=== PATIENT | female | born 1960 | race Caucasian/White ===

== ENCOUNTER 2017-12-31 05:23 | Observation (INO) | payer BC ==
--- NOTE | 2017-12-31 05:47 | ED ---
Nausea/Vomiting/Diarrhea HPI - General Source: patient Mode of arrival: ambulatory Limitations: no limitations - History of Present Illness MD complaint: nausea, vomiting Onset/Timin -: hour(s) Description of Vomiting: food contents Associated Abdominal Pain: No Radiation: none Consistency: constant Improves with: none Worsens with: none Associated Symptoms: other (Palpitations) <Dank Medrano - Last Filed: 12/31/17 05:56> <Ari Edwards - Last Filed: 12/31/17 09:06> - General Chief complaint: Nausea/Vomiting/Diarrhea Stated complaint: NVD, racing heart Time Seen by Provider: 12/31/17 05:35 - History of Present Illness Initial comments: This patient is 57-year-old woman who presents to be evaluated for nausea and vomiting. She states that she had been sleeping in woke up around 2:00 because she was feeling nauseated and then she had a number of episodes of vomiting. When this continued into the morning she presented here to be evaluated. She states that she also felt like her heart was racing. She states she had a similar episode about 10 years ago. (Dank Medrano) - Related Data Home Medications Medication Instructions Recorded Confirmed Calcium Carbonate/Vitamin D3 1 tab PO Q48H 12/31/17 12/31/17 [Calcium 600-Vit D3 200 Tablet] Metoprolol Tartrate [Lopressor] 12.5 mg PO HS 12/31/17 12/31/17 Metoprolol Tartrate [Lopressor] 25 mg PO QAM 12/31/17 12/31/17 Simvastatin [Zocor] 10 mg PO HS 12/31/17 12/31/17 Allergies Allergy/AdvReac Type Severity Reaction Status Date / Time aspirin AdvReac Nausea & Verified 12/31/17 07:45 Vomiting metronidazole [From Flagyl] AdvReac Nausea & Verified 12/31/17 07:45 Vomiting Review of Systems ROS Other: All systems not noted in ROS Statement are negative. Constitutional: Denies: fever, chills, weakness Respiratory: Denies: cough, dyspnea, wheezes Cardiovascular: Reports: palpitations. Denies: chest pain, orthopnea, edema Gastrointestinal: Reports: nausea, vomiting. Denies: abdominal pain, constipation, melena, hematochezia Genitourinary: Denies: dysuria, hematuria Musculoskeletal: Denies: back pain Skin: Denies: rash Neurological: Denies: headache, weakness, numbness <Dank Medrano - Last Filed: 12/31/17 05:56> ROS Other: All systems not noted in ROS Statement are negative. <Ari Edwards - Last Filed: 12/31/17 09:06> ROS Statement: Those systems with pertinent positive or pertinent negative responses have been documented in the HPI. Past Medical History Past Medical History: Hyperlipidemia, Thyroid Disorder Additional Past Medical History / Comment(s): pulmonary ventricular contractions , colitis, polycystic ovarian disorder History of Any Multi-Drug Resistant Organisms: None Reported Past Surgical History: Tubal Ligation Additional Past Surgical History / Comment(s): ovarian cyst removal Past Psychological History: No Psychological Hx Reported Smoking Status: Never smoker Past Alcohol Use History: None Reported Past Drug Use History: None Reported <Dank Medrano - Last Filed: 12/31/17 05:56> General Exam Limitations: no limitations General appearance: alert, in no apparent distress, anxious Head exam: Present: atraumatic, normocephalic Eye exam: Present: normal appearance. Absent: scleral icterus, conjunctival injection ENT exam: Present: mucous membranes dry Neck exam: Present: normal inspection Respiratory exam: Present: normal lung sounds bilaterally. Absent: respiratory distress, wheezes, rales, rhonchi, stridor Cardiovascular Exam: Present: normal rhythm, tachycardia (Rates approximate 104 bpm), normal heart sounds. Absent: systolic murmur, diastolic murmur, rubs, gallop GI/Abdominal exam: Present: soft, diminished bowel sounds. Absent: distended, tenderness, guarding, rebound, rigid, mass, pulsatile mass, hernia Extremities exam: Present: normal inspection, normal capillary refill. Absent: pedal edema, calf tenderness Back exam: Present: normal inspection. Absent: CVA tenderness (R), CVA tenderness (L) Neurological exam: Present: alert Skin exam: Present: warm, dry, intact, normal color. Absent: rash <Dank Medrano - Last Filed: 12/31/17 05:56> Vital Signs 12/31/17 12/31/17 12/31/17 05:26 06:37 08:21 Temperature 97.5 F L Pulse Rate 105 H 99 75 Respiratory 20 17 Rate Blood Pressure 142/86 152/84 145/75 O2 Sat by Pulse 99 95 95 Oximetry Medical Decision Making - EKG Data -: EKG Interpreted by Ar EKG shows normal: sinus rhythm, axis (Normal), intervals (Normal), QRS complexes (Normal), ST-T waves (Normal) Rate: tachycardia (Rate 104 bpm) <Dank Medrano - Last Filed: 12/31/17 05:56> - Lab Data Result diagrams: 12/31/17 05:48 12/31/17 05:48 - Radiology Data Radiology results: report reviewed (Gallbladder ultrasound shows no acute process) <Ari Edwards - Last Filed: 12/31/17 09:06> - Medical Decision Making Patient was reevaluated by myself, Dr. Edwards. Abdomen soft and nontender. Patient does feel much better at this time. Blood sugar remains 333 despite 10 units of IV insulin and fluid bolus. Case was discussed in detail with Dr. Reynolds, who will admit for [facility]. Patient updated. (Ari Edwards) - Lab Data Lab Results 12/31/17 12/31/17 12/31/17 Range/Units 05:48 05:48 05:48 WBC 12.3 H (3.8-10.6) k/uL RBC 5.96 H (3.80-5.40) m/uL Hgb 17.0 H (11.4-16.0) gm/dL Hct 51.5 H (34.0-46.0) % MCV 86.5 (80.0-100.0) fL MCH 28.5 (25.0-35.0) pg MCHC 33.0 (31.0-37.0) g/dL RDW 13.8 (11.5-15.5) % Plt Count 351 (150-450) k/uL Neutrophils % 86 % Lymphocytes % 6 % Monocytes % 5 % Eosinophils % 1 % Basophils % 0 % Neutrophils # 10.7 H (1.3-7.7) k/uL Lymphocytes # 0.8 L (1.0-4.8) k/uL Monocytes # 0.6 (0-1.0) k/uL Eosinophils # 0.1 (0-0.7) k/uL Basophils # 0.1 (0-0.2) k/uL Sodium 140 (137-145) mmol/L Potassium 4.8 (3.5-5.1) mmol/L Chloride 100 (98-107) mmol/L Carbon Dioxide 21 L (22-30) mmol/L Anion Gap 19 mmol/L BUN 15 (7-17) mg/dL Creatinine 0.75 (0.52-1.04) mg/dL Est GFR (CKD-EPI)AfAm >90 (>60 ml/min/1.73 sqM) Est GFR (CKD-EPI)NonAf 90 (>60 ml/min/1.73 sqM) Glucose 416 H (74-99) mg/dL POC Glucose (mg/dL) (75-99) mg/dL POC Glu Mental Hygienist ID Calcium 10.0 (8.4-10.2) mg/dL Total Bilirubin 1.6 H (0.2-1.3) mg/dL AST 32 (14-36) U/L ALT 47 (9-52) U/L Alkaline Phosphatase 184 H (38-126) U/L Total Protein 7.5 (6.3-8.2) g/dL Albumin 4.6 (3.5-5.0) g/dL Amylase 122 H (30-110) U/L Lipase 214 (23-300) U/L Urine Color Urine Appearance (Clear) Urine pH (5.0-8.0) Ur Specific [place] (1.001-1.035) Urine Protein (Negative) Urine Glucose (UA) (Negative) Urine Ketones (Negative) Urine Blood (Negative) Urine Nitrite (Negative) Urine Bilirubin (Negative) Urine Urobilinogen (<2.0) mg/dL Ur Leukocyte Esterase (Negative) Urine RBC (0-5) /hpf Urine WBC (0-5) /hpf Ur Squamous Epith Cells (0-4) /hpf Urine Mucus (None) /hpf Acetone, Qual Negative (Negative) 12/31/17 12/31/17 Range/Units 06:02 08:06 WBC (3.8-10.6) k/uL RBC (3.80-5.40) m/uL Hgb (11.4-16.0) gm/dL Hct (34.0-46.0) % MCV (80.0-100.0) fL MCH (25.0-35.0) pg MCHC (31.0-37.0) g/dL RDW (11.5-15.5) % Plt Count (150-450) k/uL Neutrophils % % Lymphocytes % % Monocytes % % Eosinophils % % Basophils % % Neutrophils # (1.3-7.7) k/uL Lymphocytes # (1.0-4.8) k/uL Monocytes # (0-1.0) k/uL Eosinophils # (0-0.7) k/uL Basophils # (0-0.2) k/uL Sodium (137-145) mmol/L Potassium (3.5-5.1) mmol/L Chloride (98-107) mmol/L Carbon Dioxide (22-30) mmol/L Anion Gap mmol/L BUN (7-17) mg/dL Creatinine (0.52-1.04) mg/dL Est GFR (CKD-EPI)AfAm (>60 ml/min/1.73 sqM) Est GFR (CKD-EPI)NonAf (>60 ml/min/1.73 sqM) Glucose (74-99) mg/dL POC Glucose (mg/dL) 333 H (75-99) mg/dL POC Glu Mental Hygienist ID [place], Dora Calcium (8.4-10.2) mg/dL Total Bilirubin (0.2-1.3) mg/dL AST (14-36) U/L ALT (9-52) U/L Alkaline Phosphatase (38-126) U/L Total Protein (6.3-8.2) g/dL Albumin (3.5-5.0) g/dL Amylase (30-110) U/L Lipase (23-300) U/L Urine Color Light Yellow Urine Appearance Clear (Clear) Urine pH 5.5 (5.0-8.0) Ur Specific [place] 1.031 (1.001-1.035) Urine Protein 1+ H (Negative) Urine Glucose (UA) 4+ H (Negative) Urine Ketones 3+ H (Negative) Urine Blood Negative (Negative) Urine Nitrite Negative (Negative) Urine Bilirubin Negative (Negative) Urine Urobilinogen <2.0 (<2.0) mg/dL Ur Leukocyte Esterase Negative (Negative) Urine RBC <1 (0-5) /hpf Urine WBC 1 (0-5) /hpf Ur Squamous Epith Cells 1 (0-4) /hpf Urine Mucus Rare H (None) /hpf Acetone, Qual (Negative) Disposition <Trachy,Dank - Last Filed: 12/31/17 05:56> Is patient prescribed a controlled substance at d/c from ED?: No Decision Time: 09:06 <Ari Edwards - Last Filed: 12/31/17 09:06> Clinical Impression: Uncontrolled diabetes mellitus, Vomiting Disposition: ADMITTED IP TO THIS HOSP Referrals: Stormy Garcia DO [Primary Care Provider] - 1-2 days
[2017-12-31] MEDS ORDERED: ONDANSETRON 4 MG/2 ML VIAL IVP STA (05:51)
[2017-12-31] MEDS ORDERED: SODIUM CHLORIDE 0.9% 1,000 ML IV ONE (05:51)
[2017-12-31 06:06] LABS: Basophils # (A) 0.1 k/uL (0-0.2); Basophils % (A) 0 %; Eosinophils # (A) 0.1 k/uL (0-0.7); Eosinophils % (A) 1 %; HCT 51.5 % (34.0-46.0); Lymphocytes # (A) 0.8 k/uL (1.0-4.8); Lymphocytes % (A) 6 %; MCH 28.5 pg (25.0-35.0); MCV 86.5 fL (80.0-100.0); Mean Platelet Volume 6.6; Monocytes # (A) 0.6 k/uL (0-1.0); Monocytes % (A) 5 %; Neutrophils # (A) 10.7 k/uL (1.3-7.7); Neutrophils % (A) 86 %; Platelet Count 351 k/uL (150-450); RBC 5.96 m/uL (3.80-5.40); RDW 13.8 % (11.5-15.5); WBC 12.3 k/uL (3.8-10.6)
[2017-12-31 06:19] LABS: ALT 47 U/L (9-52); AST 32 U/L (14-36); Albumin 4.6 g/dL (3.5-5.0); Alkaline Phosphatase 184 U/L (38-126); Amylase 122 U/L (30-110); Anion Gap 19 mmol/L; Blood Urea Nitrogen 15 mg/dL (7-17); Carbon Dioxide 21 mmol/L (22-30); Chloride 100 mmol/L (98-107); Glucose 416 mg/dL (74-99); Lipase 214 U/L (23-300); Potassium 4.8 mmol/L (3.5-5.1); Sodium 140 mmol/L (137-145); Total Bilirubin 1.6 mg/dL (0.2-1.3); Total Protein 7.5 g/dL (6.3-8.2)
[2017-12-31 06:19] LABS: Appearance,Urine Clear (Clear); Bilirubin,Urine Negative (Negative); Blood,Urine Negative (Negative); Color,Urine Light Yellow; Glucose,Urine (UA) 4+ (Negative); Leukocyte Esterase,Urine Negative (Negative); Mucus,Urine Rare /hpf; Nitrite,Urine Negative (Negative); PH, Urine 5.5 (5.0-8.0); Protein,Urine 1+ (Negative); RBC,Urine <1 /hpf (0-5); Specific Gravity,Urine 1.031 (1.001-1.035); Squamous Epithelial Cell,Urine 1 /hpf (0-4); Urobilinogen,Urine <2.0 mg/dL (<2.0); WBC,Urine 1 /hpf (0-5)
[2017-12-31 06:25] LABS: Ketones,Urine 3+ (Negative)
[2017-12-31] MEDS ORDERED: INSULIN REGULAR 100 UNIT/ML VIAL SQ STA (06:26)
[2017-12-31] MEDS ORDERED: METOCLOPRAMIDE 5 MG/ML 2 ML VIAL IVP STA (07:16)
[2017-12-31 08:08] LABS: Glucose,Whole Blood 333 mg/dL (75-99)
--- NOTE | 2017-12-31 08:36 | US ---
EXAMINATION TYPE: US abdomen limited DATE OF EXAM: 12/31/2017 COMPARISON: CT 2012, US 2011 CLINICAL HISTORY: Pain, attention RUQ. Abdomen pain and N/V/D x 1 day EXAM MEASUREMENTS: Liver Length: 18.6 cm Gallbladder Wall: 0.2 cm CBD: 0.7 cm Right Kidney: 11.5 x 5.2 x 5.5 cm Difficult study due to patient body habitus Pancreas: obscured by overlying midline bowel gas Liver: Prominent at 18.6cm, increased attenuation, heterogeneous with small hypoechoic areas adjacen t to gallbladder with largest measuring 1.5cm, possible focal sparring Gallbladder: wnl Evidence for sonographic Bean's sign: no CBD: Minimally dilated at 0.7cm Right Kidney: wnl Visualized liver is heterogeneously hyperechoic consistent with diffuse fatty infiltration. IMPRESSION: No shadowing mobile gallstones or ultrasound evidence for acute cholecystitis. Diffuse fa tty infiltration of liver is redemonstrated.
[2017-12-31] MEDS ORDERED: NALOXONE 0.4 MG/ML 1 ML VIAL IV PRN (09:07)
[2017-12-31] MEDS ORDERED: ONDANSETRON 4 MG/2 ML VIAL IVP PRN (09:07)
[2017-12-31] MEDS: SODIUM CHLORIDE 0.9% 1,000 ML IV SCH (10:30)
[2017-12-31] MEDS: PANTOPRAZOLE 40 MG/10 ML VIAL IV SCH (10:30)
[2017-12-31 11:21] VITALS: BMI 30.4
[2017-12-31 12:18] LABS: Glucose,Whole Blood 247 mg/dL (75-99)
[2017-12-31] MEDS: INSULIN ASPART 100 UNIT/ML 1 ML 10 ML VIAL SQ SCH ×3 (12:24→21:10)
[2017-12-31 14:42] VITALS: RESP 16
[2017-12-31] MEDS ORDERED: CALCIUM CARB-VIT D 500MG-200UN 1 EACH TAB PO SCH (16:30)
[2017-12-31 17:14] LABS: Glucose,Whole Blood 240 mg/dL (75-99)
--- NOTE | 2017-12-31 17:39 | P.HPIM ---
History of Present Illness H&P Date: 12/31/17 Ryanne Rowland is a 57-year-old female patient of Dr. Stormy Garcia who presented to [facility] emergency room with a chief complaint of vomiting diarrhea and abdominal pain. Patient stated that she was in her normal state of health on Thursday evening she went to bed, she woke up at 2 AM complaining of nausea vomiting diarrhea and abdominal pain, she was brought in to [facility] emergency room where she was evaluated her glucose level was elevated at 416 total bilirubin was up to 1.6 and alkaline phosphatase was elevated at 184 abdomen ultrasound was done and it did not show any acute abnormality, patient was admitted to medical floor for further evaluation, lipase was normal at 214 and it is slightly elevated at 122. Patient stated that she was diagnosed with diabetes many years ago she took metformin for 4 years, her sugar was then normal, she discontinued taking metformin several years ago, she stated that her last blood test was about 2 years ago. Patient also stated that she had a previous diagnosis of colitis where she use to have flareups requiring antibiotic treatment, she states that she has not had any recent flareup her last treatment was 3 years ago. Past Medical History Past Medical History: Eye Disorder, Hyperlipidemia, Thyroid Disorder Additional Past Medical History / Comment(s): "Pre diabetes but was taken off glucophage 8 years ago", premature ventricular contractions, colitis, polycystic ovarian disorder, hypothyroid, psoriatic arthritis multiple joints, nonalcoholic fatty liver, beginnings of macular degeneration bilaterally. History of Any Multi-Drug Resistant Organisms: None Reported Past Surgical History: Tubal Ligation Additional Past Surgical History / Comment(s): 3 ovarian cysts removal-bilateral , colonoscopy, teeth pulled. Additional Past Anesthesia/Blood Transfusion Reaction / Comment(s): Slow to wake after anesthesia. Smoking Status: Never smoker - Past Family History Mother Family Medical History: COPD, CVA/TIA, Myocardial Infarction (PR) Additional Family Medical History / Comment(s): Mother had a CVA and during that work-up was told she had a PR at some time. Mother of emphysema at the age of 76yrs. She was a smoker. Father Family Medical History: Hyperlipidemia Additional Family Medical History / Comment(s): Father is living. Medications and Allergies Home Medications Medication Instructions Recorded Confirmed Type Calcium Carbonate/Vitamin D3 1 tab PO Q48H 12/31/17 12/31/17 History [Calcium 600-Vit D3 200 Tablet] Metoprolol Tartrate [Lopressor] 12.5 mg PO HS 12/31/17 12/31/17 History Metoprolol Tartrate [Lopressor] 25 mg PO QAM 12/31/17 12/31/17 History Simvastatin [Zocor] 10 mg PO HS 12/31/17 12/31/17 History Allergies Allergy/AdvReac Type Severity Reaction Status Date / Time aspirin AdvReac Nausea & Verified 12/31/17 07:45 Vomiting metronidazole [From Flagyl] AdvReac Nausea & Verified 12/31/17 07:45 Vomiting Physical Exam Vitals: Vital Signs Temp Pulse Pulse Resp BP BP Pulse Ox 12/31/17 14:42 98.5 F 111 H 16 123/64 97 12/31/17 10:11 97.5 F L 97 18 137/80 92 L 12/31/17 09:51 97 18 137/80 92 L 12/31/17 08:21 75 145/75 95 12/31/17 08:00 97.9 F 93 16 127/66 95 12/31/17 06:37 99 17 152/84 95 12/31/17 05:26 97.5 F L 105 H 20 142/86 99 Intake and Output 12/31/17 12/31/17 12/31/17 06:59 14:59 22:59 Intake Total 1600 Balance 1600 Intake: Amount of Fluid Infused ( 1600 ml) Other: # Voids 2 Weight 90.718 kg 90.718 kg In general patient is alert and oriented 3 in no apparent distress HEENT head normocephalic and atraumatic Neck is supple no JVD no goiter no lymphadenopathy Chest exam reveals a few scattered rhonchi no wheezing Cardiac exam reveals regular heart sounds no gallops no murmurs Abdomen is soft with mild diffuse tenderness no organomegaly Extremity exam reveals no edema no cyanosis or clubbing Results CBC & Chem 7: 12/31/17 05:48 12/31/17 05:48 Labs: Abnormal Lab Results - Last 24 Hours (Table) 12/31/17 12/31/17 12/31/17 Range/Units 05:48 05:48 06:02 WBC 12.3 H (3.8-10.6) k/uL RBC 5.96 H (3.80-5.40) m/uL Hgb 17.0 H (11.4-16.0) gm/dL Hct 51.5 H (34.0-46.0) % Neutrophils # 10.7 H (1.3-7.7) k/uL Lymphocytes # 0.8 L (1.0-4.8) k/uL Carbon Dioxide 21 L (22-30) mmol/L Glucose 416 H (74-99) mg/dL POC Glucose (mg/dL) (75-99) mg/dL Total Bilirubin 1.6 H (0.2-1.3) mg/dL Alkaline Phosphatase 184 H (38-126) U/L Amylase 122 H (30-110) U/L Urine Protein 1+ H (Negative) Urine Glucose (UA) 4+ H (Negative) Urine Ketones 3+ H (Negative) Urine Mucus Rare H (None) /hpf 12/31/17 12/31/17 12/31/17 Range/Units 08:06 12:11 17:00 WBC (3.8-10.6) k/uL RBC (3.80-5.40) m/uL Hgb (11.4-16.0) gm/dL Hct (34.0-46.0) % Neutrophils # (1.3-7.7) k/uL Lymphocytes # (1.0-4.8) k/uL Carbon Dioxide (22-30) mmol/L Glucose (74-99) mg/dL POC Glucose (mg/dL) 333 H 247 H 240 H (75-99) mg/dL Total Bilirubin (0.2-1.3) mg/dL Alkaline Phosphatase (38-126) U/L Amylase (30-110) U/L Urine Protein (Negative) Urine Glucose (UA) (Negative) Urine Ketones (Negative) Urine Mucus (None) /hpf Thrombosis Risk Factor Assmnt - Choose All That Apply Any of the Below Risk Factors Present?: Yes Each Factor Represents 1 point: Age 41-60 years, Hx of IBD, Obesity (BMI >25) Other Risk Factors: No Other congenital or acquired thrombophilia - If yes, enter type in comment: No Thrombosis Risk Factor Assessment Total Risk Factor Score: 3 Thrombosis Risk Factor Assessment Level: Moderate Risk Assessment and Plan Plan: #1 abdominal pain with vomiting and diarrhea, patient had previous history of colitis Will check computed tomography scan of the abdomen and pelvis, consult gastroenterology #2 hyperglycemia glucose 416 on presentation, patient had previous history of diabetes mellitus millimeters however she has not had any recent medication and no blood testing more than 2 years, will check hemoglobin A1c, will cover was insulin sliding scale at this time #3 elevated alkaline phosphatase and total bilirubin, will monitor labs will check computed tomography scan of the abdomen and pelvis Will follow closely
[2017-12-31] MEDS: IOPAMIDOL-300 CONTRAST 30 ML VIAL (ORAL USE) PO PRN ×2 (18:40→19:41)
--- NOTE | 2017-12-31 20:34 | CT ---
EXAMINATION TYPE: CT abdomen pelvis w con DATE OF EXAM: 12/31/2017 COMPARISON: 02/20/2013 HISTORY: Abdominal pain and vomiting. CT DLP: 1733 mGycm Automated exposure control for dose reduction was used. TECHNIQUE: Helical acquisition of images was performed from the lung bases through the pelvis. CONTRAST: Performed with Oral Contrast and with IV Contrast, patient injected with 100 mL of Isovue M300. FINDINGS: There is mild linear density at the lung bases consistent with subsegmental atelectasis. There is no pleural effusion. There is no pericardial effusion. Heart size is normal. Liver spleen pancreas gallbladder appear normal. Bile ducts are not dilated. There is no adrenal mass. Kidneys show satisfactory contrast opacification. There is no hydronephrosi s. There is no retroperitoneal adenopathy. There are sigmoid diverticula. There is no evidence of div erticulitis. Bladder distends smoothly. Uterus is anteverted. There is no evidence of a pelvic mass. There is no sign of appendicitis. Appendix is not seen. I see no intestinal wall thickening. There is no sign of a bowel obstruction. The bony structures appear intact. IMPRESSION: MINIMAL SIGMOID DIVERTICULOSIS. OTHERWISE NEGATIVE EXAM. NO ADVERSE CHANGE COMPARED TO OLD EXAM. MILD SUBSEGMENTAL ATELECTASIS AT THE LUNG BASES.
[2017-12-31] MEDS ORDERED: METOPROLOL TARTRATE 12.5 MG TAB PO SCH (21:00)
[2017-12-31] MEDS ORDERED: ATORVASTATIN 10 MG TAB PO SCH (21:00)
[2017-12-31 21:12] LABS: Glucose,Whole Blood 227 mg/dL (75-99)
[2018-01-01 03:01] LABS: Glucose,Whole Blood 220 mg/dL (75-99)
[2018-01-01 06:03] VITALS: BP 127/78; PULSE 84; TEMP 98.7
[2018-01-01] MEDS: SODIUM CHLORIDE 0.9% 1,000 ML IV SCH ×2 (06:19→13:09)
[2018-01-01 07:14] LABS: Glucose,Whole Blood 225 mg/dL (75-99)
[2018-01-01] MEDS: PANTOPRAZOLE 40 MG/10 ML VIAL IV SCH (08:03)
[2018-01-01] MEDS: INSULIN ASPART 100 UNIT/ML 1 ML 10 ML VIAL SQ SCH ×2 (08:03→12:36)
[2018-01-01] MEDS ORDERED: METOPROLOL TARTRATE 25 MG TAB PO SCH (09:00)
[2018-01-01 09:10] LABS: Basophils # (A) 0.1 k/uL (0-0.2); Basophils % (A) 1 %; Eosinophils # (A) 0.2 k/uL (0-0.7); Eosinophils % (A) 2 %; HCT 42.7 % (34.0-46.0); HGB 14.4 gm/dL (11.4-16.0); Lymphocytes # (A) 1.6 k/uL (1.0-4.8); Lymphocytes % (A) 24 %; MCH 29.2 pg (25.0-35.0); MCHC 33.7 g/dL (31.0-37.0); MCV 86.7 fL (80.0-100.0); Mean Platelet Volume 6.2; Monocytes # (A) 0.3 k/uL (0-1.0); Monocytes % (A) 5 %; Neutrophils # (A) 4.5 k/uL (1.3-7.7); Neutrophils % (A) 67 %; Platelet Count 295 k/uL (150-450); RBC 4.93 m/uL (3.80-5.40); RDW 13.9 % (11.5-15.5); WBC 6.7 k/uL (3.8-10.6)
[2018-01-01 09:20] LABS: ALT 36 U/L (9-52); AST 24 U/L (14-36); Albumin 3.3 g/dL (3.5-5.0); Alkaline Phosphatase 87 U/L (38-126); Anion Gap 11 mmol/L; Blood Urea Nitrogen 13 mg/dL (7-17); Calcium 8.5 mg/dL (8.4-10.2); Carbon Dioxide 24 mmol/L (22-30); Chloride 103 mmol/L (98-107); Glucose 288 mg/dL (74-99); Potassium 4.6 mmol/L (3.5-5.1); Sodium 138 mmol/L (137-145); Total Bilirubin 1.6 mg/dL (0.2-1.3); Total Protein 5.8 g/dL (6.3-8.2)
[2018-01-01] MEDS ORDERED: ACETAMINOPHEN TAB 325 MG TAB PO PRN (10:06)
--- NOTE | 2018-01-01 10:44 | P.CONS ---
History of Present Illness - Reason for Consult Consult date: 01/01/18 Abdominal pain nausea vomiting - History of Present Illness 57-year-old female with a history of diverticulosis, nonspecific colitis status post colonoscopy 5 years ago admitted with acute intractable nausea vomiting diarrhea bilateral lower abdominal pain that started around 2 AM yesterday. Yesterday between 2 AM-5 AM she had several episodes of nonbloody diarrhea and nonbloody emesis. No recurrent emesis or diarrhea since admission. No changes in medications. No sick contacts. No changes in diet. CT abdomen minimal sigmoid diverticulosis no evidence of diverticulitis. No evidence of bowel obstruction or intestinal wall thickening. Ultrasound abdomen unremarkable. Presently she is resting comfortably tolerating a diet. Afebrile. Abdominal pain resolved. In the past she's had a few episodes of colitis not requiring hospitalizations some have been treated with antibiotics some not with clinical improvement. Term fuentes Castro performed a colonoscopy about 5 years ago at [facility] to her memory and findings were unremarkable possible colitis she is unsure. No personal a familial history of inflammatory bowel disease such as ulcerative colitis or Crohn's. No weight loss. Review of Systems Constitutional: Denies fever, chills, sweats, weight gain, or loss. HEENT: Negative for migraines, blurred vision or loss, earaches, drainage, tinnitus, oral mucosal lesions, dysphagia, or odynophagia. CARDIAC: Negative for chest pain, arrhythmias, or palpitation. RESPIRATORY: Negative for shortness of breath, hemoptysis, cough, or sputum production. GI: See HPI for pertinent findings. : Negative for hematuria, urgency, frequency, polyuria, or dysuria. GYNc: Negative vaginal discharge. MUSCULOSKELETAL: Negative for muscle aches, swelling, arthritis, and arthralgias. NEUROLOGIC: Negative for stroke or TIA. ENDOCRINE: Negative for thyroid problems. SKIN: Negative for rash or itching. PSYCHIATRIC: Negative history for depression and anxiety Past Medical History Past Medical History: Eye Disorder, Hyperlipidemia, Thyroid Disorder Additional Past Medical History / Comment(s): "Pre diabetes but was taken off glucophage 8 years ago", premature ventricular contractions, colitis, polycystic ovarian disorder, hypothyroid, psoriatic arthritis multiple joints, nonalcoholic fatty liver, beginnings of macular degeneration bilaterally. History of Any Multi-Drug Resistant Organisms: None Reported Past Surgical History: Tubal Ligation Additional Past Surgical History / Comment(s): 3 ovarian cysts removal-bilateral , colonoscopy, teeth pulled. Additional Past Anesthesia/Blood Transfusion Reaction / Comm: Slow to wake after anesthesia. Smoking Status: Never smoker - Past Family History Mother Family Medical History: COPD, CVA/TIA, Myocardial Infarction ([place]) Additional Family Medical History / Comment(s): Mother had a CVA and during that work-up was told she had a [place] at some time. Mother of emphysema at the age of 76yrs. She was a smoker. Father Family Medical History: Hyperlipidemia Additional Family Medical History / Comment(s): Father is living. Medications and Allergies Home Medications Medication Instructions Recorded Confirmed Type Calcium Carbonate/Vitamin D3 1 tab PO Q48H 12/31/17 12/31/17 History [Calcium 600-Vit D3 200 Tablet] Metoprolol Tartrate [Lopressor] 12.5 mg PO HS 12/31/17 12/31/17 History Metoprolol Tartrate [Lopressor] 25 mg PO QAM 12/31/17 12/31/17 History Simvastatin [Zocor] 10 mg PO HS 12/31/17 12/31/17 History Allergies Allergy/AdvReac Type Severity Reaction Status Date / Time aspirin AdvReac Nausea & Verified 12/31/17 07:45 Vomiting metronidazole [From Flagyl] AdvReac Nausea & Verified 12/31/17 07:45 Vomiting Physical Exam Vitals: Vital Signs Temp Pulse Resp BP Pulse Ox 01/01/18 06:02 98.7 F 84 16 127/78 96 12/31/17 23:00 98.6 F 77 16 138/82 94 L 12/31/17 21:06 83 153/87 12/31/17 14:42 98.5 F 111 H 16 123/64 97 Intake and Output 12/31/17 01/01/18 01/01/18 22:59 06:59 14:59 Intake Total 320 Balance 320 Intake: Oral 320 Other: Voiding Method Toilet # Voids 3 2 General appearance: The patient is alert, oriented, in no acute distress. HET: Head is normocephalic and atraumatic. Pupils are equal and reactive. Oropharynx is clear without lesions. Neck: Supple without lymphadenopathy. Trachea midline. Heart: S1 S2. Regular rate and rhythm. Lungs: No crackles or wheezes are heard. Abdomen: Soft, nontender, nondistended with bowel sounds. No peritoneal signs. No palpable organomegaly or masses. Extremities: Normal skin color and turgor. No cyanosis, rash, ulceration, clubbing, or edema. Radial and pedal pulses are 2/4 bilaterally. Neurological: No focal deficits. Strength and sensation are grossly intact. Results CBC & Chem 7: 01/01/18 08:40 01/01/18 08:40 Labs: Abnormal Lab Results - Last 24 Hours (Table) 12/31/17 12/31/17 12/31/17 Range/Units 05:58 12:11 17:00 Glucose (74-99) mg/dL POC Glucose (mg/dL) 247 H 240 H (75-99) mg/dL Hemoglobin A1c 12.0 H (4.0-6.0) % Total Bilirubin (0.2-1.3) mg/dL Total Protein (6.3-8.2) g/dL Albumin (3.5-5.0) g/dL 12/31/17 01/01/18 01/01/18 Range/Units 20:58 02:57 07:05 Glucose (74-99) mg/dL POC Glucose (mg/dL) 227 H 220 H 225 H (75-99) mg/dL Hemoglobin A1c (4.0-6.0) % Total Bilirubin (0.2-1.3) mg/dL Total Protein (6.3-8.2) g/dL Albumin (3.5-5.0) g/dL 01/01/18 Range/Units 08:40 Glucose 288 H (74-99) mg/dL POC Glucose (mg/dL) (75-99) mg/dL Hemoglobin A1c (4.0-6.0) % Total Bilirubin 1.6 H (0.2-1.3) mg/dL Total Protein 5.8 L (6.3-8.2) g/dL Albumin 3.3 L (3.5-5.0) g/dL CT scan - abdomen: report reviewed (Dr. Gaspar) US - abdomen: report reviewed (Dr. Smyth) Assessment and Plan (1) Gastroenteritis Narrative/Plan: 57 year old female with a history of remote nonspecific colitis colonic diverticulosis admitted with intractable nausea vomiting nonbloody diarrhea 24 hours without fever or leukocytosis since resolved suspect gastroenteritis. Current Visit: Yes Status: Acute Code(s): K52.9 - NONINFECTIVE GASTROENTERITIS AND COLITIS, UNSPECIFIED SNOMED Code(s): 45757648 (2) History of colitis Current Visit: Yes Status: Chronic Code(s): Z87.19 - PERSONAL HISTORY OF OTHER DISEASES OF THE DIGESTIVE SYSTEM SNOMED Code(s): 410645792 (3) Colon, diverticulosis Current Visit: Yes Status: Chronic Code(s): K57.30 - DVRTCLOS OF LG INT W/O PERFORATION OR ABSCESS W/O BLEEDING SNOMED Code(s): 360292201 Plan: 1. Low residue diet for the next 2-3 days. Inpatient endoscopy is not planned at this time however patient was advised to follow up in the outpatient setting in the next 2-3 weeks for reevaluation and discussion of outpatient rescreening colonoscopy. Patient is agreeable with this plan of care. Discharge per medicine. Thank you for this kind referral and the opportunity to participate in the care of your patient. This consultation was discussed with Dr. Smyth. The impression and plan of care have been directed as dictated.
--- NOTE | 2018-01-01 11:40 | P.DS ---
Providers Date of admission: 12/31/17 09:07 Expected date of discharge: 01/01/18 Attending physician: Martha Reynolds Consults: 12/31/17 17:41 Consult Physician Routine Consulting Provider: Nata Smyth Consult Reason/Comments: vomiting, abd pain Do you want consulting provider notified?: Yes Primary care physician: Stormy Garcia Hospital Course: Discharge diagnosis #1 abdominal pain with vomiting and diarrhea: Likely related to a viral gastroenteritis. Computed tomography scan of the abdomen and pelvis revealed minimal sigmoid diverticulosis no evidence of colitis or diverticulitis #2 diabetes mellitus type 2 with hyperglycemia glucose 416 on presentation: A1c 12. Patient will be placed on Lantus 15 units at bedtime at home and restarted on metformin 500 mg twice a day. And she'll be on glipizide 5 mg 3 times a day before meals #3 history of colitis Hospital course Ryanne Rowland is a 57-year-old female patient of Dr. Stormy Garcia who presented to [facility] emergency room with a chief complaint of vomiting diarrhea and abdominal pain. Patient stated that she was in her normal state of health on Thursday evening she went to bed, she woke up at 2 AM complaining of nausea vomiting diarrhea and abdominal pain, she was brought in to [facility] emergency room where she was evaluated her glucose level was elevated at 416 total bilirubin was up to 1.6 and alkaline phosphatase was elevated at 184 abdomen ultrasound was done and it did not show any acute abnormality, patient was admitted to medical floor for further evaluation, lipase was normal at 214 and it is slightly elevated at 122. Patient stated that she was diagnosed with diabetes many years ago she took metformin for 4 years, her sugar was then normal, she discontinued taking metformin several years ago, she stated that her last blood test was about 2 years ago. Patient also stated that she had a previous diagnosis of colitis where she use to have flareups requiring antibiotic treatment, she states that she has not had any recent flareup her last treatment was 3 years ago. Patient had a computed tomography scan of the abdomen and pelvis completed showing minimal sigmoid diverticulosis. She was seen by GI service. This felt likely her symptoms are related to a viral gastroenteritis. They resolved within 24 hours. Due to her history of colitis GI services recommending a follow-up visit and had to have a rescreening colonoscopy completed in the outpatient setting. During this admission patient was found to be hyperglycemic with blood sugars in the 400s on admission. And his been ranging in the 200s during her stay here. A1c was 12. She'll be placed on Lantus 15 units at bedtime with metformin 500 twice a day and glipizide 5 mg 3 times a day before meals. She has been seen by the peer educator and information on diabetes classes have been given. Patient is medically stable for discharge. She's been cleared by consulting physicians. I performed an examination of the patient and discussed their management with the physician Woods Boss. I have reviewed the Physician Woods Boss's notes and agree with the documented findings and plan of care Patient Condition at Discharge: Stable Plan - Discharge Summary Discharge Rx Participant: No New Discharge Prescriptions: New glipiZIDE [Glucotrol] 5 mg PO TID #90 tab Insulin Glargine,Hum.rec.anlog [Lantus Solostar] 15 unit SQ HS #1 pen metFORMIN HCL [Glucophage] 500 mg PO BID #60 tab Continue Metoprolol Tartrate [Lopressor] 25 mg PO QAM Simvastatin [Zocor] 10 mg PO HS Metoprolol Tartrate [Lopressor] 12.5 mg PO HS Calcium Carbonate/Vitamin D3 [Calcium 600-Vit D3 200 Tablet] 1 tab PO Q48H Discharge Medication List Calcium Carbonate/Vitamin D3 [Calcium 600-Vit D3 200 Tablet] 1 tab PO Q48H 12/31 [History] Metoprolol Tartrate [Lopressor] 12.5 mg PO HS 12/31/17 [History] Metoprolol Tartrate [Lopressor] 25 mg PO QAM 12/31/17 [History] Simvastatin [Zocor] 10 mg PO HS 12/31/17 [History] Insulin Glargine,Hum.rec.anlog [Lantus Solostar] 15 unit SQ HS #1 pen 01/01/18 [ Rx] glipiZIDE [Glucotrol] 5 mg PO TID #90 tab 01/01/18 [Rx] metFORMIN HCL [Glucophage] 500 mg PO BID #60 tab 01/01/18 [Rx] Follow up Appointment(s)/Referral(s): Nata Smyth MD [STAFF PHYSICIAN] - 02/11/18 11:45 am ([place] office) Jose,Stormy, DO [Primary Care Provider] - 3 Days Activity/Diet/Wound Care/Special Instructions: Diet: cardiac, diabetic Activity: as tolerated Discharge Disposition: HOME SELF-CARE
[2018-01-01 12:11] LABS: Glucose,Whole Blood 238 mg/dL (75-99)
== END 2018-01-01 14:15 | disposition home or self-care (01) ==
LOC: EC 05:23 → 4MS4W 09:07
PROVIDERS: ADMIT Internal Medicine; ATTEND Internal Medicine
DX: E11.65 Type 2 diabetes mellitus with hyperglycemia (principal); E03.9 Hypothyroidism, unspecified; R10.9 Unspecified abdominal pain; E28.2 Polycystic ovarian syndrome; E78.5 Hyperlipidemia, unspecified; H35.30 Unspecified macular degeneration; K76.0 Fatty (change of) liver, not elsewhere classified; K57.30 Diverticulosis of large intestine without perforation or abscess without bleeding; L40.50 Arthropathic psoriasis, unspecified; Z79.4 Long term (current) use of insulin; Z79.899 Other long term (current) drug therapy; Z82.49 Family history of ischemic heart disease and other diseases of the circulatory system; Z82.5 Family history of asthma and other chronic lower respiratory diseases; Z88.6 Allergy status to analgesic agent; Z88.8 Allergy status to other drugs, medicaments and biological substances
CPT/HCPCS: 96376; 96361 ×3; 96375 ×2; 96374; 99285; 36415; 93005; 80053 ×2; 82150; 82009; 83690; 85025 ×2; 81001; 83036; 76705; 74177; G0378 ×2; J2765; J2405; C9113 ×2; Q9967

== ENCOUNTER → 2018-02-15 | Outpatient (CLI) | payer BC ==
--- NOTE | 2018-02-15 13:37 | BD ---
EXAMINATION TYPE: Axial Bone Density DATE OF EXAM: 02/15/2018 CLINICAL HISTORY: Height: 68 inches Weight: 200 FRAX RISK QUESTIONS: Alcohol (3 or more units per day): no Family History (Parent hip fracture): no Glucocorticoids (More than 3mos): no (Ex: prednisone, prednisolone, methylprednisolone, dexamethasone, and hydrocortisone). History of Fracture in Adulthood: no Secondary Osteoporosis: 1. Type 1 Diabetes: no 2. Hyperthyroidism: no 3. Menopause before 45: yes 4. Malnutrition: no 5. Chronic liver disease: non alcoholic fatty liver Rheumatoid Arthritis: no Current Tobacco Use: no RISK FACTORS HISTORY OF: Family History of Osteoporosis: unsure Active: yes Diet low in dairy products/other sources of calcium: no Postmenopausal woman: yes Take estrogen and/or progesterone medications: no Lost more than 2 inches in height since high school: possibly, states may have been about 6ft 10 inch es at one time Frequent falls: no Poor Health: no Hyperparathyroidism: no Adrenal Insufficiency: no MEDICATIONS: Prednisone or other steroids: no Thyroid Medications: yes Which medication: Synthroid How Long: just started a couple days ago Osteoporosis Medications: no Additional Medications: diabetic meds (oral & injection) , 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 Bone mineral density as measured about the Lumbar spine is: ----- L1-L4(G/cm2): 1.541 T Score Values are as follows: ----- L2: 2.7 ----- L3: 3.2 ----- L4: 3.0 ----- L1-L4: 3.0 Bone mineral density not previously done at this facility; previously done at physician office Bone mineral density about the R hip (g/cm2): 1.206 Bone mineral density about the L hip (g/cm2): 1.199 T Score values are as follows: -----R Neck: 1.2 -----L Neck: 1.2 -----R Total: 1.7 -----L Total: 1.7 Bone mineral density not previously done at this facility; previously done at physician office IMPRESSION: Normal (Values between +1 and -1 indicate normal bone mass). Consider repeating this study in 5 year s or sooner if there is some new clinical indication. NOTE: T-SCORE=SD OF THE YOUNG ADULT MEAN.
--- NOTE | 2018-02-17 12:00 | MM ---
Reason for exam: screening (asymptomatic). Last mammogram was performed 3 years and 7 months ago. History: Patient is postmenopausal. Family history of breast cancer in maternal cousin. Physical Findings: A clinical breast exam by your physician is recommended on an annual basis and results should be correlated with mammographic findings. MG Screening Mammo w CAD Bilateral CC and MLO view(s) were taken. Prior study comparison: August 02, 2014, bilateral MG diagnostic mammo w CAD [facility]. April 29, 2012, left diagnostic mammogram w/CAD. There are scattered fibroglandular densities. No significant changes when compared with prior studies. ASSESSMENT: Negative, BI-RAD 1 RECOMMENDATION: Routine screening mammogram of both breasts in 1 year.
== END | disposition home or self-care (01) ==
LOC: RADMAMWWP 07:46
PROVIDERS: ATTEND Family Medicine
DX: Z12.31 Encounter for screening mammogram for malignant neoplasm of breast (principal); Z78.0 Asymptomatic menopausal state
CPT/HCPCS: 77067; 77080

== ENCOUNTER → 2018-03-19 | Outpatient (CLI) | payer BC ==
[2018-03-19 09:20] LABS: HCT 49.8 % (34.0-46.0); HGB 15.9 gm/dL (11.4-16.0); MCH 28.7 pg (25.0-35.0); MCHC 31.8 g/dL (31.0-37.0); MCV 90.2 fL (80.0-100.0); Mean Platelet Volume 6.1; Platelet Count 360 k/uL (150-450); RBC 5.53 m/uL (3.80-5.40); RDW 14.2 % (11.5-15.5); WBC 6.5 k/uL (3.8-10.6)
[2018-03-19 11:07] LABS: Erythrocyte Sedimentation Rate 11 mm/hr (0-20)
[2018-03-19 18:05] LABS: Gliadin AB IgA, Unit 0.9 U/mL
== END | disposition home or self-care (01) ==
LOC: LABWHC1 08:58
PROVIDERS: ATTEND Internal Medicine Gastroenterology
DX: K52.9 Noninfective gastroenteritis and colitis, unspecified (principal)
CPT/HCPCS: 36415; 83516; 85027; 85652; 86140

== ENCOUNTER → 2020-04-06 | Outpatient (CLI) | payer BC ==
--- NOTE | 2020-04-10 11:14 | MM ---
Reason for exam: screening (asymptomatic). Last mammogram was performed 2 years and 2 months ago. History: Patient is postmenopausal. Family history of breast cancer in maternal cousin. Physical Findings: A clinical breast exam by your physician is recommended on an annual basis and results should be correlated with mammographic findings. MG Screening Mammo w CAD Bilateral CC and MLO view(s) were taken. Prior study comparison: February 15, 2018, bilateral MG screening mammo w CAD. August 02, 2014, bilateral MG diagnostic mammo w CAD [facility]. There are scattered fibroglandular densities. No significant changes when compared with prior studies. ASSESSMENT: Negative, BI-RAD 1 RECOMMENDATION: Routine screening mammogram of both breasts in 1 year.
== END | disposition home or self-care (01) ==
LOC: RADMAMWWP 16:10
PROVIDERS: ATTEND Family Medicine
DX: Z08 Encounter for follow-up examination after completed treatment for malignant neoplasm (principal); Z80.3 Family history of malignant neoplasm of breast
CPT/HCPCS: 77067

== ENCOUNTER → 2021-07-11 | Outpatient (CLI) | payer BC ==
--- NOTE | 2021-07-15 14:01 | MM ---
Reason for exam: screening (asymptomatic). Last mammogram was performed 1 year and 3 months ago. History: Patient is postmenopausal. Family history of breast cancer in maternal cousin at age 35. Physical Findings: A clinical breast exam by your physician is recommended on an annual basis and results should be correlated with mammographic findings. MG Screening Mammo w CAD Bilateral CC and MLO view(s) were taken. Prior study comparison: April 06, 2020, bilateral MG screening mammo w CAD. February 15, 2018, bilateral MG screening mammo w CAD. There are scattered fibroglandular densities. There is no discrete abnormality. ASSESSMENT: Negative, BI-RAD 1 RECOMMENDATION: Routine screening mammogram of both breasts in 1 year.
== END | disposition home or self-care (01) ==
LOC: RADMAMWWP 09:28
PROVIDERS: ATTEND Family Medicine
DX: Z12.31 Encounter for screening mammogram for malignant neoplasm of breast (principal); Z78.0 Asymptomatic menopausal state; Z80.3 Family history of malignant neoplasm of breast
CPT/HCPCS: 77067

== ENCOUNTER 2023-09-23 06:32 | Day surgery (SDC) | payer BC ==
[~2023-09-23 06:32] MED LIST: LACTATED RINGERS 1,000 ML IV SCH; LIDOCAINE 1% (10MG/ML) FOR IV START INTRADERMA PRN
[2023-09-23] MEDS ORDERED: ONDANSETRON 4 MG/2 ML VIAL IVP PRN (07:00)
[2023-09-23] MEDS: LACTATED RINGERS 1,000 ML IV ONE (07:09)
[2023-09-23 07:15] LABS: Glucose,Whole Blood 113 mg/dL (70-110)
[2023-09-23] MEDS ORDERED: PROPOFOL 10 MG/ML 20 ML VIAL IV ONE (07:20)
[2023-09-23 07:30] VITALS: TEMP 97.9
--- NOTE | 2023-09-23 07:44 | P.PCN ---
Date of Procedure: 09/23/23 Procedure(s) Performed: BRIEF HISTORY: Patient is a 62-year-old pleasant white female scheduled for an elective colonoscopy as a part of screening for colon cancer. PROCEDURE PERFORMED: Colonoscopy. PREOPERATIVE DIAGNOSIS: Screening for colon cancer. IV sedation per Anesthesia. PROCEDURE: After informed consent was obtained, the patient, was brought into the endoscopy unit. IV sedation was administered by Anesthesia under continuous monitoring. Digital rectal examination was normal. Initially the Olympus CF-160 flexible video colonoscope was then inserted in the rectum, gradually advanced into the cecum without any difficulty. Careful examination was performed as the scope was gradually being withdrawn. Ileocecal valve and the appendiceal orifice were visualized and appeared normal. Prep was excellent. Mucosa of the cecum, ascending colon, transverse colon, descending colon, sigmoid colon, and rectum appeared normal. Scattered sigmoid diverticulosis Retroflexion was performed in the rectum and no lesions were seen. The patient tolerated the procedure well. IMPRESSION: Normal-appearing colon from rectum to cecum with no evidence of colorectal neoplasia . Scattered sigmoid diverticulosis RECOMMENDATIONS: Findings of this examination were discussed with the patient as well as a family. She was advised to have a repeat screening colonoscopy in 10 years..
[2023-09-23 08:39] VITALS: BP 120/73; PULSE 84; RESP 18
== END 2023-09-23 08:23 | disposition home or self-care (01) ==
LOC: ORWHC2ENDO 06:32
PROVIDERS: ATTEND Internal Medicine Gastroenterology
DX: Z12.11 Encounter for screening for malignant neoplasm of colon (principal); K57.30 Diverticulosis of large intestine without perforation or abscess without bleeding; I10 Essential (primary) hypertension; E78.5 Hyperlipidemia, unspecified; I49.9 Cardiac arrhythmia, unspecified; K75.81 Nonalcoholic steatohepatitis (NASH); E11.9 Type 2 diabetes mellitus without complications; K21.9 Gastro-esophageal reflux disease without esophagitis; K58.9 Irritable bowel syndrome, unspecified; Z88.6 Allergy status to analgesic agent; Z88.1 Allergy status to other antibiotic agents; Z79.85 Long-term (current) use of injectable non-insulin antidiabetic drugs; Z79.84 Long term (current) use of oral hypoglycemic drugs
CPT/HCPCS: 45378; J2704

== ENCOUNTER → 2023-11-04 | Outpatient (CLI) | payer BC ==
--- NOTE | 2023-11-06 08:41 | MM ---
Reason for Exam: Screening (asymptomatic). Last mammogram was performed 1 year(s) and 2 month(s) ago. Patient History: Menarche at age 14. First Full-Term at age 24. Postmenopausal. Maternal cousin had breast cancer, age 35. Risk Values: Aria 5 year model risk: 1.3%. NCI Lifetime model risk: 6.4%. Prior Study Comparison: 04/06/2020 Bilateral Screening Mammogram, [facility]. 07/11/2021 Bilateral Screening Mammogram, [facility]. 09/02/2022 Bilateral MG screening mammo w CAD, [facility]. Tissue Density: There are scattered areas of fibroglandular density. Findings: Analyzed By CAD. Right breast: There is no suspicious group of microcalcifications or new suspicious mass. Left breast: There is no suspicious group of microcalcifications or new suspicious mass. Overall Assessment: Negative, BI-RAD 1 Management: Screening Mammogram of both breasts in [address] [facility] will attempt to contact patient to return for supplemental views and ultrasound if indicated. Patient should continue monthly self-breast exams. A clinical breast exam by your physician is recommended on an annual basis. This exam should not preclude additional follow-up of suspicious palpable abnormalities. Note on Aria scores and lifetime risk: 1. A Aria score greater than 3% is considered moderate risk. If this is the case, consider specialist referral to assess eligibility for a risk reducing agent. 2. If overall lifetime risk for the development of breast cancer is 20% or higher, the patient may qualify for future screening with alternating mammogram and breast MRI. Electronically signed and approved by: Moshe Vazquez DO
== END | disposition home or self-care (01) ==
LOC: RADMAMWWP 11:03
PROVIDERS: ATTEND Family Medicine
DX: Z12.31 Encounter for screening mammogram for malignant neoplasm of breast (principal); Z78.0 Asymptomatic menopausal state; Z80.3 Family history of malignant neoplasm of breast
CPT/HCPCS: 77067

== ENCOUNTER → 2024-03-23 | Outpatient (CLI) | payer BC ==
[2024-03-23 12:40] LABS: African American GFR (CKD) 83 (>60 ml/min/1.73 sqM); Blood Urea Nitrogen 14 mg/dL (7-17); Non-African American GFR(CKD) 72 (>60 ml/min/1.73 sqM)
--- NOTE | 2024-03-26 11:39 | CT ---
EXAMINATION TYPE: CT abdomen pelvis w con CT DLP: 1040.4 mGycm, Automated exposure control for dose reduction was used. DATE OF EXAM: 03/23/2024 1:55 PM COMPARISON: CT abdomen pelvis most recent from 12/31/2017 CLINICAL INDICATION: Female, 63 years old with history of N95.0 POSTMENOPAUSAL BLEEDING; POSTMENOPAUS AL BLEEDING X2 MONTHS TECHNIQUE: Axial CT abdomen pelvis w con;Sagittal and coronal reformats were created on a separate w orkstation. Contrast used:100 mL of Isovue 300 with IV Contrast, (none if empty) Oral contrast used: with Oral Contrast (none if empty) FINDINGS: LOWER CHEST: Unremarkable ABDOMEN LIVER: Unremarkable GALLBLADDER AND BILE DUCTS: Unremarkable. PANCREAS: Unremarkable. SPLEEN: Unremarkable. ADRENAL GLANDS: Unremarkable. KIDNEYS AND URETERS: No evidence of hydronephrosis or renal calculus. The ureters are unremarkable. PELVIS BLADDER: Unremarkable REPRODUCTIVE: The uterus is grossly unremarkable on CT imaging there may be a right fundal fibroid me asuring up to 22 mm. Endometrium is poorly visualized. ABDOMEN & PELVIS STOMACH AND BOWEL: No evidence of bowel obstruction. Scattered colonic diverticula. PERITONEUM/RETROPERITONEUM: No evidence of pneumoperitoneum or free fluid. VASCULATURE: No evidence of aortic aneurysm. MUSCULOSKELETAL: No acute osseous abnormalities LYMPH NODES: No gross evidence for lymphadenopathy. SOFT TISSUE/ABDOMINAL WALL: Unremarkable IMPRESSION: 1. Poor visualization of the endometrium consider evaluation with pelvic ultrasound. 2. Colonic diverticulosis. 3. Fat-containing umbilical hernia.
== END | disposition home or self-care (01) ==
LOC: RADCTMAIN 11:42
PROVIDERS: ATTEND Family Medicine
DX: N95.0 Postmenopausal bleeding
CPT/HCPCS: 36415; 74177; 82565; 84520

== ENCOUNTER → 2024-04-18 | Outpatient (CLI) | payer BC ==
[2024-04-18 13:19] LABS: Basophils # (A) 0.06 X 10*3/uL (0.00-0.10); Basophils % (A) 0.8 %; Eosinophils # (A) 0.17 X 10*3/uL (0.04-0.35); Eosinophils % (A) 2.2 %; HCT 42.8 % (37.2-46.3); HGB 13.4 g/dL (12.0-15.0); Lymphocytes # (A) 1.38 X 10*3/uL (0.90-5.00); Lymphocytes % (A) 18.2 %; MCH 28.4 pg (27.0-32.0); MCHC 31.3 g/dL (32.0-37.0); MCV 90.7 FL (80.0-97.0); Mean Platelet Volume 9.1 FL (9.5-12.2); Monocytes # (A) 0.62 X 10*3/uL (0.20-1.00); Monocytes % (A) 8.2 %; NRBC Per 100 WBC 0 X 10*3/uL (0.00-0.01); Neutrophils # (A) 5.34 X 10*3/uL (1.80-7.70); Neutrophils % (A) 70.3 %; Platelet Count 403 X 10*3/uL (140-440); RBC 4.72 X 10*6/uL (4.10-5.20); RDW 14.4 % (11.5-14.5); WBC 7.59 X 10*3/uL (4.50-10.00)
== END ==
LOC: LABPAT 08:47
PROVIDERS: ATTEND Surgery
DX: Z01.818 Encounter for other preprocedural examination (principal)
CPT/HCPCS: 36415; 85025; 86850; 86900; 86901; 93005

== ENCOUNTER 2024-04-27 05:41 | Day surgery (SDC) | payer BC ==
[2024-04-27] MEDS ORDERED: fentaNYL (PF) 50 MCG/ML 2 ML AMP IVP PRN (05:48)
[2024-04-27] MEDS ORDERED: DEXAMETHASONE SOD PHOSPHATE 4 MG/ML 1 ML VIAL IV ONE (05:48)
[2024-04-27] MEDS: ACETAMINOPHEN TAB 500 MG TAB PO PRN (06:35)
[2024-04-27] MEDS: LACTATED RINGERS 1,000 ML IV SCH (06:40)
[2024-04-27] MEDS: IV FLUID CONTINUATION 1,000 ML IV ONE (06:40)
[2024-04-27] MEDS: LIDOCAINE 1% (10MG/ML) FOR IV START INTRADERMA PRN (06:40)
[2024-04-27] MEDS: ONDANSETRON 4 MG/2 ML VIAL IVP ONE (06:52)
[2024-04-27 06:58] LABS: Glucose,Whole Blood 122 mg/dL (70-110)
[2024-04-27] MEDS: MIDAZOLAM 2 MG/2 ML VIAL IV PRN (07:06)
[2024-04-27 07:09] LABS: Potassium 4.8 mmol/L (3.5-5.1)
[2024-04-27] MEDS: HEPARIN SODIUM,PORCINE 5,000 UNIT/ML 1 ML VIAL SQ PRN (07:20)
[2024-04-27] MEDS ORDERED: PROPOFOL 10 MG/ML 20 ML VIAL IV ONE (07:34)
[2024-04-27] MEDS ORDERED: PHENYLEPHRINE 10 MG/ML VIAL ONE (07:34)
[2024-04-27] MEDS ORDERED: KETOROLAC 15 MG/ML 1 ML VIAL ONE (07:34)
[2024-04-27] MEDS ORDERED: SUCCINYLCHOLINE CHLORIDE 200 MG/10 ML VIAL IV ONE (07:34)
[2024-04-27] MEDS ORDERED: LIDOCAINE 1% INJ 10MG/ML (20 ML MDV) ONE (07:34)
[2024-04-27] MEDS ORDERED: ROPIVACAINE 5 MG/ML 30 ML VIAL ONE (07:34)
[2024-04-27] MEDS ORDERED: fentaNYL (PF) 50 MCG/ML 2 ML AMP ONE (07:34)
[2024-04-27] MEDS ORDERED: DEXAMETHASONE SOD PHOSPHATE 4 MG/ML 1 ML VIAL ONE (07:34)
[2024-04-27] MEDS ORDERED: KETAMINE HCL IN 0.9 % NACL 50 MG/5 ML SYRINGE ONE (07:34)
[2024-04-27] MEDS ORDERED: SUGAMMADEX SODIUM 200 MG/2 ML SDV IV ONE (07:34)
[2024-04-27] MEDS ORDERED: ROCURONIUM 10 MG/ML (5 ML VIAL) IV ONE (07:34)
[2024-04-27] MEDS: LIDOCAINE 1%-EPI 1:100,000 20 ML VIAL SQ ONE (08:08)
--- NOTE | 2024-04-27 08:38 | P.OP ---
Date of Procedure: 04/27/24 Preoperative Diagnosis: Incisional hernia Postoperative Diagnosis: incisional hernia a Procedure(s) Performed: Laparoscopic robotic repair of incisional hernia Transversus abdominis plane block Anesthesia: QUAN Surgeon: Stefan Gutierrez Estimated Blood Loss (ml): 5 Pathology: none sent Condition: stable Disposition: PACU Description of Procedure: The patient was placed on the operating table in the supine position. He received general anesthesia. His abdomen was prepped and draped usual fashion. Using a 5 mm optical trocar under direct visualization the peritoneal cavity was entered in the left upper quadrant. The abdomen was then insufflated. The laparoscope was placed back into the perineal cavity. Next a 8 mm robotic trocar was placed in the left lower quadrant and a 12 mm robotic trocar was placed in the left lateral position. The original 5 mm trocar was exchanged for a 8 mm robotic trocar. The patient's placed in the left side up position. And the patient was docked to the robot. A four-quadrant transversus abdominis plane block was performed 1% local Xylocaine. The incisional hernia was visualized. Using hook cautery the peritoneum over the incisional hernia was excised. The fascial opening was repaired using 0V LOC suture. Next a piece of 11 cm round ventral light ST mesh was placed into the. Cavity and secured with 2 OV lock suture. The patient was undocked the robot. The needles were retrieved. The fascia of the 12 mm trocar site was closed with 0 Ethibond suture. Skin was closed interrupted 3-0 Monocryl suture. Dermabond dressings was applied. Patient tolerated procedure well and was sent to recovery room stable condition.
[2024-04-27 08:45] VITALS: TEMP 96.7
[2024-04-27 08:48] LABS: Glucose,Whole Blood 164 mg/dL (70-110)
[2024-04-27] MEDS: MEPERIDINE 50 MG/ML SYRINGE IVP STA (09:12)
[2024-04-27] MEDS: HYDROmorphone 0.5 MG/0.5 ML SYRINGE IVP PRN (09:27)
[2024-04-27 10:02] VITALS: RESP 18
[2024-04-27 10:16] VITALS: BP 128/80; PULSE 82
--- NOTE | 2024-04-28 18:23 | P.ANPRN ---
Procedure Note - Anesthesia - Nerve Block Performed Bilateral Rectus Abdominis Single Time Out Performed: Yes Date of Procedure: 04/27/24 Procedure Start Time: :06 Procedure Stop Time: 07:10 Location of Patient: PreOp Indication: Acute Post-Operative Pain, Requested by Surgeon Sedation Type: Sedate with meaningful contact maintained Preparation: Sterile Prep Position: Supine Needle Types: Pajunk Needle Gauge: 21 Ultrasound used to visualize needle placement: Yes Ultrasound used to observe medication spread: Yes Blood Aspirated: No Pain Paresthesia on Injection Noted: No Resistance on Injection: Normal Image Stored and Saved: Yes Events: Uneventful and Well Tolerated (Ropivacaine 0.5% 15 cc plus dexamethasone 4 mg given bilaterally)
--- NOTE | 2024-04-28 18:24 | P.ANPRN ---
Procedure Note - Anesthesia - Nerve Block Performed Bilateral Transversus Abdominis Single Time Out Performed: Yes Date of Procedure: 04/27/24 Procedure Start Time: 07:11 Procedure Stop Time: 07:15 Location of Patient: PreOp Indication: Acute Post-Operative Pain, Requested by Surgeon Sedation Type: Sedate with meaningful contact maintained Preparation: Sterile Prep Position: Supine Needle Types: Pajunk Needle Gauge: 21 Ultrasound used to visualize needle placement: Yes Ultrasound used to observe medication spread: Yes Blood Aspirated: No Pain Paresthesia on Injection Noted: No Resistance on Injection: Normal Image Stored and Saved: Yes Events: Uneventful and Well Tolerated (Ropivacaine 0.5% 15 cc plus dexamethasone 4 mg given bilaterally)
== END 2024-04-27 10:39 | disposition home or self-care (01) ==
LOC: OR 05:41
PROVIDERS: ATTEND Surgery
DX: K43.2 Incisional hernia without obstruction or gangrene (principal); I10 Essential (primary) hypertension; E78.5 Hyperlipidemia, unspecified; E11.9 Type 2 diabetes mellitus without complications; K21.9 Gastro-esophageal reflux disease without esophagitis; K51.90 Ulcerative colitis, unspecified, without complications; E07.9 Disorder of thyroid, unspecified; Z79.84 Long term (current) use of oral hypoglycemic drugs; Z79.899 Other long term (current) drug therapy; Z88.6 Allergy status to analgesic agent
CPT/HCPCS: 64488; 80051; 49591; C1781; J2250; J0330; J1644; J1100; J2175; J0690; J2405; J2003; J3010; J2795; J1885; J2704; J1171; J2371